=== PATIENT | male | born 2005 | race Asian ===

== ENCOUNTER 2025-02-26 23:22 | Emergency (ER) | payer OTHER ==
[~2025-02-26] VITALS: Ht 175.3 cm; Wt 79.3 kg
[2025-02-26 23:39] VITALS: O2SAT 99
[2025-02-27] MEDS: IBUPROFEN 600MG TABLET PO ONE (01:35)
[2025-02-27] MEDS: BACITRACIN ZINC OINT UDPKT TOP ONE (01:42)
[2025-02-27] MEDS: LIDOCAINE HCL 1% 20ML VIAL INFIL ONE (01:42)
[2025-02-27] MEDS ORDERED: BO1 TP (02:27)
[2025-02-27] MEDS ORDERED: IBUP-1455 MT (02:27)
[2025-02-27 02:40] VITALS: BP 102/63; PULSE 82; RESP 18; TEMP 36.6; O2SAT 99
== END 2025-02-27 02:40 | disposition home or self-care (01) ==
LOC: ER 23:22
DX: L05.91 Pilonidal cyst without abscess (principal); I10 Essential (primary) hypertension; Z98.890 Other specified postprocedural states
CPT/HCPCS: 10080; 99283; Z7610